=== PATIENT | male | born 1970 | race Caucasian/White ===

== ENCOUNTER 2016-11-04 12:56 | Emergency (ER) | payer BC ==
[2016-11-04] MEDS ORDERED: Ketorolac 60 MG/2 ML SDV IM ONE (13:31)
[2016-11-04] MEDS ORDERED: Metoprolol Tartrate 50 MG Tab PO ONE (13:32)
[2016-11-04] MEDS ORDERED: Loratadine/Pseudoephedrine 5-120 MG Tab.ER PO ONE (13:40)
[2016-11-04] MEDS ORDERED: Meclizine 25 MG Tab PO ONE (14:00)
--- NOTE | 2016-11-04 14:22 | EDM.PDOC ---
<Freedom Serrato - Last Filed: 11/04/16 15:42> ED HPI GENERAL MEDICAL PROBLEM - General Chief Complaint: General Stated Complaint: DIZZY AND HEADACHE Time Seen by Provider: 11/04/16 13:00 Source of Information: Reports: Patient History Limitations: Reports: No Limitations - History of Present Illness INITIAL COMMENTS - FREE TEXT/NARRATIVE: History of present illness: [46-year-old male comes in complaining of dizziness as well as headache. Patient has a known history of hypertension and his blood pressure is elevated on this visit.] Review of systems: As per history of present illness and below otherwise all systems reviewed and negative. Past medical history: As per history of present illness and as reviewed below otherwise noncontributory. Surgical history: As per history of present illness and as reviewed below otherwise noncontributory. Social history: No reported history of drug or alcohol abuse. Family history: As per history of present illness and as reviewed below otherwise noncontributory. Physical exam: HEENT: Atraumatic, normocephalic, pupils reactive, negative for conjunctival pallor or scleral icterus, mucous membranes moist, oral pharyngeal erythema without white patchy exudate, left TM noted to be bulging with good light reflex , neck supple, nontender, trachea midline. Lungs: Clear to auscultation, breath sounds equal bilaterally, chest nontender. Heart: S1S2, regular, negative for clicks, rubs, or JVD. Abdomen: Soft, nondistended, nontender. Negative for masses or hepatosplenomegaly. Negative for costovertebral tenderness. Pelvis: Stable nontender. Genitourinary: Deferred. Rectal: Deferred. Extremities: Atraumatic, negative for cords or calf pain. Neurovascular unremarkable. Neuro: Awake, alert, oriented. Cranial nerves II through XII unremarkable. Cerebellum unremarkable. Motor and sensory unremarkable throughout. Exam nonfocal. CT of head added which was subsequently negative for any acute findings Diagnostics: [EKG, CT of head without contrast] Therapeutics: [Toradol, loratadine with pseudoephedrine, meclizine, metoprolol] Impression: [#1 hypertension #2 eustachian tube dysfunction with vertigo] Plan: [Follow-up with his vertical borer for hypertension, Rx for meclizine, and antihistamine OTC] Definitive disposition and diagnosis as appropriate pending reevaluation and review of above. - Related Data Allergies Allergy/AdvReac Type Severity Reaction Status Date / Time cephalexin monohydrate Allergy Swelling Verified 11/04/16 13:18 [From Keflex] Home Meds: Home Meds Lisinopril 40 mg PO DAILY 07/03/13 [History] Meclizine [Antivert] 25 mg PO TID #45 tablet 11/04/16 [Rx] Past Medical History Cardiovascular History: Reports: Bypass, Hypertension - Past Surgical History GI Surgical History: Reports: Cholecystectomy Musculoskeletal Surgical History: Reports: Other (See Below) Other Musculoskeletal Surgeries/Procedures:: left knee surgery and bilateral elbow surgery Social & Family History - Family History Family Medical History: Noncontributory - Tobacco Use Smoking Status *Q: Current Every Day Smoker Years of Tobacco use: 25 Packs/Tins Daily: 0.5 Used Tobacco, but Quit: No - Caffeine Use Caffeine Use: Reports: Coffee Caffeine Use Comment: 3 cups per day - Alcohol Use Days Per Week of Alcohol Use: 4 Number of Drinks Per Day: 3 Total Drinks Per Week: 12 - Recreational Drug Use Recreational Drug Use: No ED ROS GENERAL - Review of Systems Review Of Systems: See Below (History of present illness) ED EXAM, GENERAL - Physical Exam Exam: See Below (History of present illness) Course - Vital Signs Last Recorded V/S: Last Vital Signs Temp 36.3 C 11/04/16 13:19 Pulse 67 11/04/16 15:56 Resp 16 11/04/16 15:56 BP 156/92 H 11/04/16 15:56 Pulse Ox 96 11/04/16 15:56 - Orders/Labs/Meds Orders: Active Orders 24 hr Category Date Time Status EKG 12 Lead [EKG Documentation Completion] [RC] STAT Care 11/04/16 13:04 Active Meds: Medications Discontinued Medications Generic Name Dose Route Start Last Admin Trade Name Freq PRN Reason Stop Dose Admin Ketorolac Tromethamine 60 mg 11/04/16 13:31 11/04/16 13:49 Toradol IM 11/04/16 13:32 60 mg ONETIME ONE Administration Loratadine/Pseudoephedrine Sulfate 1 tab 11/04/16 13:40 11/04/16 13:47 Claritin-D 12 Hour PO 11/04/16 13:41 1 tab ONETIME ONE Administration Meclizine HCl 25 mg 11/04/16 14:00 11/04/16 14:15 Antivert PO 11/04/16 14:01 25 mg ONETIME ONE Administration Metoprolol Tartrate 50 mg 11/04/16 13:32 11/04/16 13:47 Lopressor PO 11/04/16 13:33 50 mg ONETIME ONE Administration Departure - Departure Time of Disposition: 15:45 Disposition: Home, Self-Care 01 Condition: Good Clinical Impression: Vertigo, Chronic hypertension - Discharge Information Prescriptions: Meclizine [Antivert] 25 mg PO TID #45 tablet Instructions: Vertigo, [id number], Hypertension, [id number] Referrals: PCP,None [Primary Care Provider] - Forms: ED Department Discharge Additional Instructions: The following information is given to patients seen in the emergency department who are being discharged to home. This information is to outline your options for follow-up care. We provide all patients seen in our emergency department with a follow-up referral. The need for follow-up, as well as the timing and circumstances, are variable depending upon the specifics of your emergency department visit. If you don't have a primary care physician on staff, we will provide you with a referral. We always advise you to contact your personal physician following an emergency department visit to inform them of the circumstance of the visit and for follow-up with them and/or the need for any referrals to a consulting specialist. The emergency department will also refer you to a specialist when appropriate. This referral assures that you have the opportunity for follow-up care with a specialist. All of these measure are taken in an effort to provide you with optimal care, which includes your follow-up. Under all circumstances we always encourage you to contact your private physician who remains a resource for coordinating your care. When calling for follow-up care, please make the office aware that this follow-up is from your recent emergency room visit. If for any reason you are refused follow-up, please contact the [facility] Emergency Department at and asked to speak to the emergency department charge nurse. Follow-up with your vertical borer for improved hypertension control as discussed Take medication as directed Follow-up with PCP 1-2 days Return to ED as needed as discussed - My Orders Last 24 Hours: My Active Orders 11/04/16 13:04 EKG 12 Lead [EKG Documentation Completion] [RC] STAT - Assessment/Plan Last 24 Hours: My Active Orders 11/04/16 13:04 EKG 12 Lead [EKG Documentation Completion] [RC] STAT <Samara Van Alexander - Last Filed: 11/05/16 08:27> ED HPI GENERAL MEDICAL PROBLEM - History of Present Illness INITIAL COMMENTS - FREE TEXT/NARRATIVE: Please note that the blood pressure here was running 150s/90s. The patient was referred back to primary care or vertical borer for management of chronic hypertension. According to my observation the patient did say he felt improved after the medication. Headache Pain Score (Numeric/FACES): 1
--- NOTE | 2016-11-04 15:40 | CT ---
EXAMINATION: Non contrast CT head. Coronal and sagittal reformats. HISTORY: Pain FINDINGS: No evidence of intra or extra axial hemorrhage, mass, midline shift, hydrocephalus or edema. No hypoattenuation changes in the major vascular territories to suggest acute infarct. No abnormal intracranial calcifications are detected. No evidence of substantial vascular calcificat ions. Paranasal sinuses and mastoid air cells are essentially well aerated without substantial findings. O rbits and globes are symmetric. Pituitary fossa appears unremarkable. Calvarium is intact. No evidence of skull fracture. IMPRESSION: No acute intracranial findings.
[2016-11-04 16:04] VITALS: BP 156/92
== END 2016-11-04 15:56 | disposition home or self-care (01) ==
LOC: MW.ED 12:56
DX: H69.80 Other specified disorders of Eustachian tube, unspecified ear (principal); I10 Essential (primary) hypertension; F17.210 Nicotine dependence, cigarettes, uncomplicated; Z90.49 Acquired absence of other specified parts of digestive tract; Z98.890 Other specified postprocedural states; Z95.1 Presence of aortocoronary bypass graft; Z79.899 Other long term (current) drug therapy; Z88.1 Allergy status to other antibiotic agents
CPT/HCPCS: 70450; 93005; 96372; 99284; A9270; J1885; 99283